=== PATIENT | female | born 1930 | race Caucasian/White ===

== ENCOUNTER 2017-03-07 20:58 | Emergency (ER) | payer MEDICARE, OTHER ==
[~2017-03-07] VITALS: Ht 160 cm; Wt 59.0 kg
[~2017-03-07 20:58] MED LIST: ACET325 PO; AMOX500 PO; AZIT250 PO; BENZ100A PO; BISA10S PR; CALGLU500 PO; CARV3.125 PO; CARV6.25; CARV6.25 PO; CONESTTC VAG; Carvedilol3.125 MG PO; Coreg12.5 MG PO; DIGO.125 PO; DIGO.25 PO; DOCU100 PO; DONE5 PO; FISH1000 PO; FLUO10 PO; FLUO20 PO; FURO20 PO; FURO40; FURO40 PO; GUAI600T33 PO; HYDACE5 PO; LACT10SY PO; LAVAP17G PO; LIDO2L MM; LISI10; LISI10 PO; LISI5 PO; LORA.5 PO; LORA1 PO; Lisinopril2.5 MG PO; MECL25 PO; Milk Of Ma400 MG/5 M PO; NYST100P; POTA10T PO; POTCHL10ER; SERT50 PO; TRAM50 PO; Ultram50 MG PO; VENL75 PO; VENL75ER; WARF1 PO; WARF10 PO; WARF5 PO; WARF7.5; WARF7.5 PO
[2017-03-07 21:23] LABS: BASOPHILS ABSOLUTE AUTO 0.01 K/mm3 (0.00-0.23); BASOPHILS PERCENT AUTO 0 % (0-2); EOSINOPHILS ABSOLUTE AUTO 0.07 K/mm3 (0.00-0.68); EOSINOPHILS PERCENT AUTO 2 % (0-6); Hematocrit 39.7 % (33.0-51.0); Hemoglobin 12.5 g/dL (11.5-16.0); IMMATURE GRAN ABSOLUTE AUTO 0.01 K/mm3 (0.00-0.10); IMMATURE GRAN PERCENT AUTO 0 % (0-1); LYMPHOCYTES ABSOLUTE AUTO 1.54 K/mm3 (0.84-5.20); LYMPHOCYTES PERCENT AUTO 35 % (21-46); MONOCYTES ABSOLUTE AUTO 0.46 K/mm3 (0.16-1.47); MONOCYTES PERCENT AUTO 11 % (4-13); Mean Corpuscular HGB Conc 31.5 g/dL (31.5-36.5); Mean Corpuscular Volume 92 fL (80-100); Mean Platelet Volume 8.8 fL (9.1-12.4); NEUTROPHILS PERCENT AUTO 52 % (41-73); Platelet Count 159 K/mm3 (150-400); RDW Coefficient Variation 13.8 % (11.7-14.2); RDW Standard Deviation 47.2 fL (35.1-46.3); Red Blood Cell Count 4.31 M/mm3 (3.80-5.20); White Blood Cell Count 4.39 K/mm3 (4.00-11.30)
[2017-03-07 21:32] LABS: International Normalized Ratio 3.16; Prothrombin Time Results 34.1 Sec (9.7-11.5)
[2017-03-07 21:39] LABS: Anion Gap 5 mmol/L (6-16); Blood Urea Nitrogen 23 mg/dL (8-24); Bun/Creatinine Ratio 30.3 (12.0-20.0); CO2, Blood 31 mmol/L (21-32); Calcium, Blood 8.6 mg/dL (8.5-10.1); Chloride, Blood 105 mmol/L (98-108); Creatinine, Blood 0.76 mg/dL (0.40-1.00); Glomerular Filtration Rate >60 (60-); Glucose, Blood 98 mg/dL (70-99); Sodium, Blood 141 mmol/L (136-145)
== END 2017-03-08 00:01 | disposition home or self-care (01) ==
LOC: ER 20:58
PROVIDERS: Emergency Medicine
DX: S00.03XA Contusion of scalp, initial encounter (principal); S40.012A Contusion of left shoulder, initial encounter; R91.1 Solitary pulmonary nodule; W18.30XA Fall on same level, unspecified, initial encounter; Z88.5 Allergy status to narcotic agent; Z88.8 Allergy status to other drugs, medicaments and biological substances; Z79.899 Other long term (current) drug therapy; Z79.01 Long term (current) use of anticoagulants; I10 Essential (primary) hypertension; F03.90 Unspecified dementia, unspecified severity, without behavioral disturbance, psychotic disturbance, mood disturbance, and anxiety; I11.0 Hypertensive heart disease with heart failure; I50.9 Heart failure, unspecified; F32.9 Major depressive disorder, single episode, unspecified; F41.9 Anxiety disorder, unspecified
CPT/HCPCS: 36415; 70450; 72125; 73030; 80048; 85025; 85610; 99284